=== PATIENT | female | born 1995 | race African-American/Black ===

== ENCOUNTER 2018-02-06 22:38 | Emergency (ER) | payer SELFPAY ==
[~2018-02-06] VITALS: Ht 167.6 cm; Wt 75.0 kg
[2018-02-06 22:48] VITALS: BP 128/66; PULSE 89; RESP 26; TEMP 97.7; O2SAT 100
[2018-02-06] MEDS ORDERED: RESP: ALBUTEROL 2.5 MG/IPRATROPIUM 0.5 MG NEB (SCH) INH ONE (23:15)
--- NOTE | 2018-02-06 23:53 | PD ---
HPI Chief Complaint: Respiratory Symptoms Time Seen by Provider: 23:48 Travel History International Travel<30 days: No Contact w/Intl Traveler<30days: No Traveled to known affect area: No History of Present Illness HPI I was asked by the triage nurse if I could write the patient 1 albuterol nebulized treatment as the patient is an asthmatic and she appears to be tight and there are currently no exam rooms available to bring her back directly. She was brought into 1 of the fast track rooms and was given a DuoNeb treatment. She was then brought back to 1 of my exam rooms, and before I could evaluate her she was seen leaving the emergency department. Therefore I was unable to obtain any history or perform a physical exam. PFS Past Medical History Asthma: Yes Diminished Hearing: No Tetanus Vaccination: Unknown Influenza Vaccination: No ?: Not LMP: 02/05/2018 Past Surgical History Surgical History: No Previous Surgery Social History Alcohol Use: No Tobacco Use: No Substance Use: No Allergies-Medications (Allergen,Severity, Reaction): Coded Allergies: No Known Allergies (Unverified , 02/06/18) Review of Systems ROS Limitations: Other: (Unable to obtain. The patient eloped.) Physical Exam Narrative Unable to obtain. The patient eloped after receiving a DuoNeb treatment. Data Data Last Documented VS Vital Signs Date Time Temp Pulse Resp B/P (MAP) Pulse Ox O2 Delivery O2 Flow Rate FiO2 02/06/18 22:48 97.7 89 26 128/66 (86) 100 Room Air Orders Orders Albuterol-Ipratropium Neb (Duoneb Neb) (02/06/18 23:15) MDM Medical Decision Making Medical Screen Exam Complete: Yes Emergency Medical Condition: Yes Differential Diagnosis Asthma exacerbation, pneumonia, bronchitis, PE, pneumothorax Narrative Course The patient was given a DuoNeb treatment by the triage nurse, then brought back to an exam room, and before I was able to assess her, she was seen walking out of the emergency department. Diagnosis Primary Impression: Left against medical advice Disposition: 07 AGAINST MEDICAL ADVICE Condition: Stable Gorge Crocker MD Feb 06, 2018 23:53
== END 2018-02-07 05:30 | disposition left against medical advice (07) ==
LOC: NEPD 22:38
DX: J45.909 Unspecified asthma, uncomplicated (principal)
CPT/HCPCS: 94664; 99281